=== PATIENT | male | born 1975 | race Caucasian/White ===

== ENCOUNTER 2023-07-17 08:50 | Inpatient (IN) | payer MEDICAID, SELFPAY ==
[2023-07-17 09:03] VITALS: BP 133/84; PULSE 89; RESP 18; TEMP 37.1; O2SAT 96; BMI 25.8
[2023-07-17 09:07] VITALS: BP 133/84; PULSE 89; RESP 19; O2SAT 96
[2023-07-17 09:25] LABS: Basophils # 0.1 10^3/uL (0.0-0.1); Basophils % 0.8 %; Eosinophils # 0.3 10^3/uL (0.0-0.8); Eosinophils % 3.5 %; Lymphocytes # 2.2 10^3/uL (0.8-4.8); Lymphocytes % 29.9 %; Mean Corpuscular HGB Conc 32.3 g/dL (30-55); Mean Corpuscular Volume 89.8 fl (82-101); Mean Platelet Volume 9.2 fL (7.4-10.4); Monocytes # 0.7 10^3/uL (0.2-0.9); Monocytes % 9.6 %; Neutrophils # 4.01 10^3/uL (1.8-7.7); Neutrophils % 55.6 %; Nucleated Red Blood Cells % 0 %; Platelet Count 224 10^3/cmm (157-399); Red Blood Count 4.79 10^6/uL (3.85-5.65); Red Cell Distribution Width 13.2 % (12.1-15.1)
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
[2023-07-17 09:41] LABS: Alanine Aminotransferase 103 U/L (0-41); Albumin Level 4.3 g/dL (3.5-5.2); Alkaline Phosphatase 91 U/L (40-130); Aspartate Amino Transferase 54 U/L (0-40); Blood Urea Nitrogen 16 mg/dL (6-20); Calcium 9.4 mg/dL (8.5-10.5); Carbon Dioxide 28 mmol/L (22-29); Chloride 104 mmol/L (98-107); Glomerular Filtration Rate 104.5 mL/min (90-130); Glucose 144 mg/dL (65-115); Osmolality Calculated 296 mOsm/kg (285-295); Salicylate 0.6 mg/dL (3-10); Sodium 141 mmol/L (136-145); Total Bilirubin 0.2 mg/dL (0.15-1.2); Total Protein 7.3 g/dL (6.6-8.7)
--- NOTE | 2023-07-17 09:42 | PC.PHAR ---
PT STATES SHOULD BE ON METFORMIN 500 MG TWICE DAILY. ALSO, STATES WAS TAKING BUSPAR (NOT SURE WHAT STRENGTH) BUT TOO CONFUSED ABOUT ANY OTHER MEDS BUT METFORMIN. 07/17/23
[2023-07-17 09:45] LABS: Acetaminophen < 5.0 ug/mL (10-30)
--- NOTE | 2023-07-17 10:13 | PC.NURSE ---
Brought patient a sandwich, some pudding and milk. Patient also stated to me at this time that his mind is racing and that he is having really bad anxiety and that he needs something to help with his anxiety. Patient also states that he is thinking about using the blanket he has and tying it to the TV hanging on the wall and attempting to hang himself. I explained to him that I would rather he not do that and he said how are you going to stop me? . I explained to the patient that I would see about getting him something for his anxiety and that we would not let him hurt himself.
--- NOTE | 2023-07-17 10:37 | PC.NURSE ---
NURSE NOTIFIED THAT PATIENT WAS ATTEMPTING TO WRAP BLANKET AROUND NECK. NURSE WALKED INTO ROOM AND PATIENT WAS TYPING A BLANKET TOGETHER. PATIENT BLANKET, SHEETS, AND CURTAINS REMOVED FROM ROOM. PROVIDER NOTIFIED.
[2023-07-17] MEDS: OLANZapine 10 mg ODT PO (10:46)
[2023-07-17] MEDS: LORazepam 2 mg Tablet PO (10:46)
[2023-07-17 11:08] LABS: Amphetamines Screen Urine Negative (Negative); Barbiturates Screen Urine Negative (Negative); Benzodiazepines Screen Urine Negative (Negative); Cocaine Screen Urine Negative (Negative); Opiate Screen Urine Negative (Negative); PCP Screen Urine Negative (Negative); THC Screen Urine Positive (Negative)
--- NOTE | 2023-07-17 12:25 | PC.NURSE ---
96 hr patient rights reviewed with patient with assistance of MEGHA Bautista @1200. Education provided, no questions, concerns or needs verbalized at this time. Patient copy left with patient @bedside.
[2023-07-17 15:54] VITALS: BP 100/61; PULSE 53; RESP 16; O2SAT 97
[2023-07-17 16:14] VITALS: BP 124/82; PULSE 85; RESP 16; O2SAT 100
[2023-07-17 20:29] VITALS: BP 106/60; PULSE 58; RESP 16; O2SAT 98
[2023-07-17 22:12] LABS: Glucose Point of Care 98 mg/dL (70-110)
[2023-07-18 06:00] VITALS: RESP 16
[2023-07-18 08:08] LABS: Glucose Point of Care 84 mg/dL (70-110)
[2023-07-18] MEDS: metformin 500 mg Tablet PO ×2 (09:02→17:57)
[2023-07-18] MEDS: OLANZapine 5 mg ODT PO ×2 (09:05→17:57)
--- NOTE | 2023-07-18 10:08 | PC.NURSE ---
Denies avh and hi. He does endorse si and states, I still want to kill myself. He denies having a plan. Patient would not go into details as to what pushed him to want to harm himself, but did say he and his girlfriend were having problems. He currently has a 1:[address] as he attempted to wrap a blanket around his neck in a suicide attempt last night in the ER.
[2023-07-18 12:25] LABS: Glucose Point of Care 99 mg/dL (70-110)
[2023-07-18 14:00] VITALS: BP 100/59; PULSE 62; RESP 13; TEMP 36.4; O2SAT 97
[2023-07-18 17:55] LABS: Glucose Point of Care 103 mg/dL (70-110)
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
[2023-07-18] MEDS: nicotine 2 mg Gum BUCCAL (19:40)
--- NOTE | 2023-07-18 20:07 | PC.NURSE ---
PT CONTINUES TO ENDORSE SI WITH PLAN TO HANG SELF WITH SHEET FROM THE CEILING TILES. ONE ON ONE SITTER AT BEDSIDE FOR PT SAFETY. PT DENIES HI AND AVH AT THIS TIME. RATES ANXIETY 10/10 AND DEPRESSION 5/10. PT REQUEST TRAZODONE TO SLEEP AND ANXIETY MEDICINE AT BEDTIME. PT IS GUARDED AND PARANOID OF CAMERAS. ALL QUESTIONS ANSWERED AND SUPPORT VOICED.
[2023-07-18] MEDS: lurasidone 20 mg Tablet PO (20:09)
[2023-07-18] MEDS: hyDROXYzine 25 mg Capsule 50 MG PO (20:09)
[2023-07-18] MEDS: trazodone 50 mg Tablet PO (20:10)
[2023-07-18 20:29] VITALS: BP 111/71; PULSE 76; RESP 18; O2SAT 96
[2023-07-18 21:41] LABS: Glucose Point of Care 115 mg/dL (70-110)
--- NOTE | 2023-07-18 23:55 | PC.NURSE ---
TRAZODONE 50 MG GIVEN FOR INSOMNIA AND VISTARIL 50 MG WAS GIVEN FOR ANXIETY. PT HAS BEEN RESTING WITH EYES CLOSED SINCE APPROXIMATELY 2144, MEDICATIONS EFFECTIVE.
[2023-07-19 05:56] VITALS: RESP 16
[2023-07-19 08:09] LABS: Glucose Point of Care 88 mg/dL (70-110)
[2023-07-19] MEDS: metformin 500 mg Tablet PO ×2 (10:54→18:00)
[2023-07-19] MEDS: nicotine 21 mg Patch 1 PATCH TRANSDERMA (12:18)
[2023-07-19] MEDS: LORazepam 1 mg Tablet PO ×3 (12:18→20:16)
[2023-07-19 12:31] LABS: Glucose Point of Care 95 mg/dL (70-110)
[2023-07-19 14:00] VITALS: BP 125/55; PULSE 87; RESP 14; TEMP 36.9; O2SAT 96
[2023-07-19] MEDS: hyDROXYzine 25 mg Capsule 50 MG PO ×2 (15:01→20:20)
[2023-07-19 17:54] LABS: Glucose Point of Care 100 mg/dL (70-110)
[2023-07-19] MEDS: lurasidone 80 mg Tablet 40 MG PO (18:03)
--- NOTE | 2023-07-19 19:00 | P.NPUPN_ITS ---
Subjective NPU 2 Subjective: 47-year-old male with a history of depression and suicidal ideation with a history of bipolar 2 disorder. The patient reported no side effects from his Latuda for bipolar depression. He continued to be on one-to-one and is continued to state that he was feeling lethargic and without energy. He had reported that he continued to have thoughts of hanging himself. The patient reported that he had been feeling depressed for several years. He had continued to report the rigors and difficulties of being homeless for 7 to 10 years. He continued to be somewhat frustrated and stated that he remained unsure as to where he was going to go but was contemplating either staying misery or returning to [place] where he had some family and friends. He had reported low energy and reported problems with frequent distractibility. He had endorsed a past history of use of Ritalin for treatment of ADHD in the past that he states has been very successful with helping him stay on task. Mental Status Exam 2 MSE Comments: He is a casually dressed white male with poor hygiene and normal gait with no evidence of any abnormal involuntary motor movements tics or tremors appreciated. His speech was normal in regards to rate, rhythm, and prosody. His mood remained depressed. His affect was restricted in range and mood congruent. He continued to endorse active suicidal ideation with intent to hang self. He denied any homicidal ideation. His thought process was linear, logical. He did not appear to be responding to internal stimuli. There was no clear evidence of delusional thinking. His attention span appeared poor as he was easily distracted. His insight is poor. His judgment is poor. His impulse control appeared limited. Vitals/I&O/Wt Last Vital Signs Temp 98.5 F 07/19/23 14:00 Pulse 87 07/19/23 14:00 Resp 14 07/19/23 14:00 BP 125/55 07/19/23 14:00 Pulse Ox 96 07/19/23 14:00 O2 Del Method Room Air 07/17/23 20:29 Data NPU 07/17/23 09:12 07/17/23 09:12 A&P Assessment and plan (1) Major depressive episode: (2) Suicidal ideation: (3) Bipolar 2 disorder: (4) Attention-deficit hyperactivity disorder, unspecified type: Plan 47-year-old male with a history of bipolar 2 disorder currently depressed with a history of PTSD as well currently actively suicidal. Will continue to require acute inpatient hospitalization. 1. Encourage individual, group and milieu therapy. 2. Recommend sober living treatment at the highest level of care to which the patient is willing to commit. 3. Continue 1-1 observation at this time due to active suicide attempt here in hospital. 4.? Restart Metformin as previously prescribed. 5.? Agreeable to treatment for bipolar depression.-Continue Latuda 20mg at 7PM, add Ritalin 10mg bid target adhd, executive dysfunction. Involuntary Hold Information 2 96 Hour Hold: 96 Hour Involuntary Admission: Yes 96 Hour Hold Ending Date: 07/24/23 96 Hour Hold Ending Time: 11:41 Attestations NPU 2 Medical Necessity Statement*: Inpatient hospitalization is medically necessary and deemed to be the clinically appropriate decision at this time. Medications will be initiated and titrated upwards as clinically deemed appropriate. The patient's likely length of stay is 5 to 7 days. Coding Level of Care Code Acute Code for [facility] Fwd Diagnoses Major depressive episode F32.9 Suicidal ideation R45.851 Bipolar 2 disorder F31.81 Attention-deficit hyperactivity disorder, unspecified type F90.9
[2023-07-19] MEDS: OLANZapine 5 mg ODT PO (19:53)
[2023-07-19] MEDS: trazodone 50 mg Tablet PO (20:20)
[2023-07-19 21:00] VITALS: BP 123/76; PULSE 97; RESP 18; TEMP 37.3; O2SAT 97
--- NOTE | 2023-07-19 21:34 | PC.NURSE ---
Patient Behavior At approximately 1920 the sitter was mike for help. When this nurse entered the room the patient had a sheet around his neck, was sitting on the ground and had the other end of the sheet closed in the bathroom door. Sheet was removed from neck. Dr. Enriquez was on the unit and notified. He ordered all linens to be removed from the patient room and to continue 1 to 1 observation. Later when patient was at nurses desk for medication he was laughing and jolly with the staff.
[2023-07-20 06:00] VITALS: RESP 16
[2023-07-20 08:07] LABS: Glucose Point of Care 122 mg/dL (70-110)
[2023-07-20] MEDS: hyDROXYzine 25 mg Capsule 50 MG PO (08:19)
[2023-07-20] MEDS: metformin 500 mg Tablet PO ×2 (08:19→17:04)
[2023-07-20] MEDS: methylphenidate 10 mg Tablet PO ×2 (08:19→11:34)
[2023-07-20] MEDS: nicotine 2 mg Gum BUCCAL ×2 (10:38→14:49)
[2023-07-20] MEDS: OLANZapine 5 mg ODT PO ×2 (10:43→16:04)
[2023-07-20 12:12] LABS: Glucose Point of Care 110 mg/dL (70-110)
--- NOTE | 2023-07-20 13:24 | P.NPUPN_ITS ---
Subjective NPU 2 Subjective: 47-year-old male with a history of depression and suicidal ideation with a history of bipolar 2 disorder and adhd. Patient had attempted to hang himself on the milieu again yesterday. He had reported that the Ritalin has been helpful in improving his activity. He had reported that he was extremely anxious after a conversation with his ex-girlfriend. He had remained somewhat ambivalent about where he would go when he is discharged. He had endorsed homelessness for nearly 7 years. He had repeatedly requested Ativan for helping with anxiety. He had continued to report feeling depressed and stated that he continued to have thoughts about hanging himself. Mental Status Exam 2 MSE Comments: He is a casually dressed white male with poor hygiene and normal gait with no evidence of any abnormal involuntary motor movements tics or tremors appreciated. His speech was normal in regards to rate, rhythm, and prosody. His mood remained depressed. His affect was restricted in range and mood congruent. He continued to endorse active suicidal ideation with intent to hang self. He denied any homicidal ideation. His thought process was linear, logical. He did not appear to be responding to internal stimuli. There was no clear evidence of delusional thinking. His attention span appeared poor as he was remained easily distracted. His insight is poor. His judgment is poor. His impulse control appeared limited. Vitals/I&O/Wt Last Vital Signs Temp 99.2 F 07/19/23 21:00 Pulse 97 07/19/23 21:00 Resp 16 07/20/23 06:00 BP 123/76 07/19/23 21:00 Pulse Ox 97 07/19/23 21:00 O2 Del Method Room Air 07/17/23 20:29 Data NPU 07/17/23 09:12 07/17/23 09:12 A&P Assessment and plan (1) Major depressive episode: (2) Suicidal ideation: (3) Bipolar 2 disorder: (4) Attention-deficit hyperactivity disorder, unspecified type: Plan 47-year-old male with a history of bipolar 2 disorder currently depressed with a history of PTSD as well currently actively suicidal. Will continue to require acute inpatient hospitalization. 1. Encourage individual, group and milieu therapy. 2. Recommend sober living treatment at the highest level of care to which the patient is willing to commit. 3. Continue 1-1 observation at this time due to active suicide attempt here in hospital. 4.? Continue Metformin as previously prescribed. 5.? Agreeable to treatment for bipolar depression.-increase Latuda 40mg at 7PM, continue Ritalin 10mg bid target adhd, executive dysfunction. Involuntary Hold Information 2 96 Hour Hold: 96 Hour Involuntary Admission: Yes 96 Hour Hold Ending Date: 07/24/23 96 Hour Hold Ending Time: 11:41 Attestations NPU 2 Medical Necessity Statement*: Inpatient hospitalization is medically necessary and deemed to be the clinically appropriate decision at this time. Medications will be initiated and titrated upwards as clinically deemed appropriate. The patient's likely length of stay is 5 to 7 days. Coding Level of Care Code Acute Code for g Fwd Diagnoses Major depressive episode F32.9 Suicidal ideation R45.851 Bipolar 2 disorder F31.81 Attention-deficit hyperactivity disorder, unspecified type F90.9
[2023-07-20 14:00] VITALS: BP 130/77; PULSE 102; RESP 17; TEMP 36.8; O2SAT 97
[2023-07-20] MEDS: lurasidone 80 mg Tablet 40 MG PO (17:05)
[2023-07-20 17:42] LABS: Glucose Point of Care 106 mg/dL (70-110)
[2023-07-20] MEDS: nicotine 4 mg lozenge MUCOUS MEM (18:08)
[2023-07-20 19:46] VITALS: BP 122/78; PULSE 97; RESP 17; TEMP 36.8; O2SAT 97
[2023-07-20] MEDS: trazodone 50 mg Tablet PO (20:01)
[2023-07-20 20:08] LABS: Glucose Point of Care 106 mg/dL (70-110)
[2023-07-21 06:00] VITALS: BP 102/64; PULSE 65; RESP 18; O2SAT 98
[2023-07-21 07:48] LABS: Glucose Point of Care 91 mg/dL (70-110)
[2023-07-21] MEDS: methylphenidate 10 mg Tablet PO ×2 (08:17→12:28)
[2023-07-21] MEDS: metformin 500 mg Tablet PO ×2 (08:17→17:02)
[2023-07-21] MEDS: OLANZapine 5 mg ODT PO ×2 (08:17→15:19)
[2023-07-21] MEDS: nicotine 4 mg lozenge MUCOUS MEM ×3 (08:39→15:29)
--- NOTE | 2023-07-21 09:19 | PC.NURSE ---
IN BED RESTING WITH SITTER AT BEDSIDE. PT CONTINUES TO ENDORSE SUICIDAL THOUGHTS WITH PLAN TO HANG HIMSELF. SITTER IN PLACE FOR SAFETY. PT DENIES HI AND AVH AT THIS TIME. RATES ANXIETY 10/10 AND DEPRESSION 0/10. PT REQUEST ANTI ANXIETY MEDICATION WITH AM MEDS. PT WAS GIVEN ZYDIS 5 MG ORDERED FOR ANXIETY. PT ISOLATES AND IS WITHDRAWN TO ROOM. PT ENCOURAGED TO SOCIALIZE WITH PEERS. ALL QUESTIONS ANSWERED AND SUPPORT WAS VOICED. DENIES PAIN.
[2023-07-21 11:39] LABS: Glucose Point of Care 102 mg/dL (70-110)
--- NOTE | 2023-07-21 13:20 | PC.NURSE ---
UP TO NURSES STATION THIS AM REQUESTING SOMETHING FOR ANXIETY. PT WAS GIVEN VISTARIL 50 MG ORDERED FOR ANXIETY.
[2023-07-21 14:00] VITALS: BP 136/73; PULSE 90; RESP 14; TEMP 36.9; O2SAT 98
[2023-07-21 17:31] LABS: Glucose Point of Care 108 mg/dL (70-110)
--- NOTE | 2023-07-21 17:45 | P.NPUPN_ITS ---
Subjective NPU 2 Subjective: 47-year-old male with a history of depression and suicidal ideation with a history of bipolar 2 disorder and adhd. Patient remained on one-to-one. He did not report having any thoughts of hanging himself although he continued to report feeling depressed. He reported some improved energy on his methylphenidate. He had reported that he was feeling better. He reported adequate sleep. He was cooperative and did not require any redirection. He had stated that he had had a long history of difficulty with managing depression with the occasional periods of hypomania. He continued to report that he was uncertain as to where he would go when he left here as he remained homeless. Mental Status Exam 2 MSE Comments: He is a casually dressed white male with poor hygiene and normal gait with no evidence of any abnormal involuntary motor movements tics or tremors appreciated. His speech was normal in regards to rate, rhythm, and prosody. His mood was endorsed as depressed but reported feeling better. His affect was less restricted today. He continued to endorse active suicidal ideation but did not report specific plan. He denied any homicidal ideation. His thought process was linear, logical. He did not appear to be responding to internal stimuli. There was no clear evidence of delusional thinking. His attention span appeared poor as he was remained easily distracted. His insight is poor. His judgment is poor. His impulse control appeared limited. Vitals/I&O/Wt Last Vital Signs Temp 98.5 F 07/21/23 14:00 Pulse 90 07/21/23 14:00 Resp 14 07/21/23 14:00 BP 136/73 07/21/23 14:00 Pulse Ox 98 07/21/23 14:00 O2 Del Method Room Air 07/21/23 06:00 Weight last 48 hrs Weight 81.703 kg Weight 81.703 kg Data NPU 07/17/23 09:12 07/17/23 09:12 A&P Assessment and plan (1) Major depressive episode: (2) Suicidal ideation: (3) Bipolar 2 disorder: (4) Attention-deficit hyperactivity disorder, unspecified type: Plan 47-year-old male with a history of bipolar 2 disorder currently depressed with a history of PTSD as well currently actively suicidal. Will continue to require acute inpatient hospitalization. 1. Encourage individual, group and milieu therapy. 2. Recommend sober living treatment at the highest level of care to which the patient is willing to commit. 3. Continue 1-1 observation at this time due to active suicide attempt here in hospital. 4.? Continue Metformin as previously prescribed. 5.? Agreeable to treatment for bipolar depression.-continue Latuda 40mg at 7PM, continue Ritalin 10mg bid target adhd, executive dysfunction. Involuntary Hold Information 2 96 Hour Hold: 96 Hour Involuntary Admission: Yes 96 Hour Hold Ending Date: 07/24/23 96 Hour Hold Ending Time: 11:41 Attestations NPU 2 Medical Necessity Statement*: Inpatient hospitalization is medically necessary and deemed to be the clinically appropriate decision at this time. Medications will be initiated and titrated upwards as clinically deemed appropriate. The patient's likely length of stay is 5 to 7 days. Coding Level of Care Code Acute Code for g Fwd Diagnoses Major depressive episode F32.9 Suicidal ideation R45.851 Bipolar 2 disorder F31.81 Attention-deficit hyperactivity disorder, unspecified type F90.9
[2023-07-21] MEDS: lurasidone 80 mg Tablet 40 MG PO (17:59)
[2023-07-21 19:25] VITALS: BP 117/63; PULSE 98; RESP 16; TEMP 37.2; O2SAT 98
[2023-07-21] MEDS: trazodone 50 mg Tablet PO (19:57)
[2023-07-21 19:58] LABS: Glucose Point of Care 109 mg/dL (70-110)
[2023-07-21] MEDS: LORazepam 1 mg Tablet PO (20:18)
[2023-07-22 06:00] VITALS: RESP 16
[2023-07-22] MEDS: methylphenidate 10 mg Tablet PO ×2 (07:35→12:09)
[2023-07-22] MEDS: metformin 500 mg Tablet PO ×2 (07:35→18:17)
[2023-07-22] MEDS: nicotine 4 mg lozenge MUCOUS MEM ×3 (07:35→19:43)
[2023-07-22 07:49] LABS: Glucose Point of Care 88 mg/dL (70-110)
[2023-07-22] MEDS: hyDROXYzine 25 mg Capsule 50 MG PO ×2 (08:33→15:27)
[2023-07-22 11:39] LABS: Glucose Point of Care 122 mg/dL (70-110)
[2023-07-22] MEDS: OLANZapine 5 mg ODT PO ×2 (13:14→20:08)
--- NOTE | 2023-07-22 13:15 | PC.NURSE ---
administered zyprexa 5mg ODT to patient. patient reports being anxious because he doesn't know what is going to happen next, where he is going and that it is cold outside.
[2023-07-22 13:35] VITALS: BP 144/81; PULSE 98; RESP 16; TEMP 36.7; O2SAT 100
--- NOTE | 2023-07-22 15:33 | P.NPUPN_ITS ---
Subjective NPU 2 Subjective: 47-year-old male with a history of depression and suicidal ideation with a history of bipolar 2 disorder and adhd. Patient remained on one-to-one as he had still said he was suicidal but reported improved energy and mood. He was more interactive on the milieu. He reported no side effects from the medication he reported no sleep continuity disruption. He continued to report having periods of sadness. Staff notes patient had been more social and was redirectable on the unit. Mental Status Exam 2 MSE Comments: He is a casually dressed white male with poor hygiene and normal gait with no evidence of any abnormal involuntary motor movements tics or tremors appreciated. His speech was normal in regards to rate, rhythm, and prosody. His mood was endorsed as better His affect was less restricted today. He continued to endorse active suicidal ideation and reported plan to hang self still. He denied any homicidal ideation. His thought process was linear, logical. He did not appear to be responding to internal stimuli. There was no clear evidence of delusional thinking. His attention span appeared poor as he was remained easily distracted. His insight is poor. His judgment is poor. His impulse control appeared limited. Vitals/I&O/Wt Last Vital Signs Temp 98.1 F 07/22/23 13:35 Pulse 98 07/22/23 13:35 Resp 16 07/22/23 13:35 BP 144/81 07/22/23 13:35 Pulse Ox 100 07/22/23 13:35 O2 Del Method Room Air 07/22/23 13:35 Weight last 48 hrs Weight 81.703 kg Weight 81.703 kg Data NPU 07/17/23 09:12 07/17/23 09:12 A&P Assessment and plan (1) Major depressive episode: (2) Suicidal ideation: (3) Bipolar 2 disorder: (4) Attention-deficit hyperactivity disorder, unspecified type: Plan 47-year-old male with a history of bipolar 2 disorder currently depressed with a history of PTSD as well currently actively suicidal. Will continue to require acute inpatient hospitalization. 1. Encourage individual, group and milieu therapy. 2. Recommend sober living treatment at the highest level of care to which the patient is willing to commit. 3. Continue 1-1 observation at this time due to active suicide attempt here in hospital. 4.? Continue Metformin as previously prescribed. 5.? Agreeable to treatment for bipolar depression.-continue Latuda 40mg at 7PM, continue Ritalin 10mg bid target adhd, executive dysfunction. Involuntary Hold Information 2 96 Hour Hold: 96 Hour Involuntary Admission: Yes 96 Hour Hold Ending Date: 07/24/23 96 Hour Hold Ending Time: 11:41 Attestations NPU 2 Medical Necessity Statement*: Inpatient hospitalization is medically necessary and deemed to be the clinically appropriate decision at this time. Medications will be initiated and titrated upwards as clinically deemed appropriate. The patient's likely length of stay is 5 to 7 days. Coding Level of Care Code Acute Code for Chg Fwd Diagnoses Major depressive episode F32.9 Suicidal ideation R45.851 Bipolar 2 disorder F31.81 Attention-deficit hyperactivity disorder, unspecified type F90.9
[2023-07-22 16:32] LABS: Glucose Point of Care 120 mg/dL (70-110)
[2023-07-22] MEDS: lurasidone 80 mg Tablet 40 MG PO (18:17)
[2023-07-22 19:33] VITALS: BP 135/74; PULSE 88; RESP 18; TEMP 36.9; O2SAT 98
[2023-07-22 19:45] LABS: Glucose Point of Care 121 mg/dL (70-110)
--- NOTE | 2023-07-22 19:54 | PC.NURSE ---
IN BED RESTING WITH SITTER AT BEDSIDE. CALM AND COOPERATIVE. DENIES SI/HI AND AVH AT THIS TIME. TONIGHT IS THE FIRST TIME PT HAS DENIED WANTING TO HARM HIMSELF BY HANGING. WHEN ASKED WHAT CHANGED PT STATED I JUST DON'T WANT TO DO THAT ANYMORE. RATES ANXIETY 5/10 AND DEPRESSION 0/10. DENIES PAIN. PT CONTINUES TO NOT BE ALLOWED TO HAVE SHEETS OR BLANKETS DUE TO PREVIOUS ATTEMPT TO HANG SELF BY SHEET. ALL QUESTIONS ANSWERED AND SUPPORT WAS VOICED.
[2023-07-22] MEDS: trazodone 50 mg Tablet PO (20:08)
--- NOTE | 2023-07-22 22:44 | PC.NURSE ---
PT UP TO NURSES STATION REQUESTING SOMETHING TO HELP ME SLEEP AND SOMETHING FOR ANXIETY. ZYDIS 5 MG WAS GIVEN FOR ANXIETY AND TRAZODONE 50 MG WAS GIVEN FOR INSOMNIA. PT CONTINUES TO DENY SUICIDAL THOUGHTS. SUPPORT VOICED.
[2023-07-23 06:00] VITALS: RESP 18
[2023-07-23 08:06] LABS: Glucose Point of Care 81 mg/dL (70-110)
[2023-07-23] MEDS: methylphenidate 10 mg Tablet PO ×2 (08:17→11:49)
[2023-07-23] MEDS: metformin 500 mg Tablet PO ×2 (08:17→17:56)
[2023-07-23] MEDS: nicotine 4 mg lozenge MUCOUS MEM ×2 (08:23→12:42)
[2023-07-23] MEDS: OLANZapine 5 mg ODT PO (10:36)
[2023-07-23] MEDS: hyDROXYzine 25 mg Capsule 50 MG PO (11:49)
[2023-07-23 12:18] LABS: Glucose Point of Care 93 mg/dL (70-110)
[2023-07-23 12:25] LABS: Glucose Point of Care 142 mg/dL (70-110)
[2023-07-23 14:00] VITALS: BP 114/74; PULSE 104; RESP 20; TEMP 36.6; O2SAT 97
--- NOTE | 2023-07-23 14:25 | P.NPUPN_ITS ---
Subjective NPU 2 Subjective: Patient presented today reporting that he is doing much better and is denying any suicidality. We discussed working with the social work team on discharge planning and he was very open to this idea. We discussed taking him off of one-to-one and he assured this proposal manager writer that he would be safe on the unit. He reported that he is having no side effects to medications. Mental Status Exam 2 MSE Comments: He is a casually dressed white male with poor hygiene and normal gait with no evidence of any abnormal involuntary motor movements tics or tremors appreciated. His speech was normal in regards to rate, rhythm, and prosody. His mood was endorsed as better His affect was less restricted today. He denied suicidal or homicidal ideation. There were no delusions reported or noted, he denied auditory or visual hallucinations. His thought process was linear, logical. Attention and concentration appeared intact and memory appeared mostly reliable but none were formally tested. He is alert and oriented x 3. Insight and judgment are limited his impulse control appeared limited, but improved. Vitals/I&O/Wt Last Vital Signs Temp 98.5 F 07/22/23 19:33 Pulse 88 07/22/23 19:33 Resp 18 07/23/23 06:00 BP 135/74 07/22/23 19:33 Pulse Ox 98 07/22/23 19:33 O2 Del Method Room Air 07/22/23 19:33 Data NPU 07/17/23 09:12 07/17/23 09:12 A&P Assessment and plan (1) Major depressive episode: (2) Suicidal ideation: (3) Bipolar 2 disorder: (4) Attention-deficit hyperactivity disorder, unspecified type: Plan 47-year-old male with a history of bipolar 2 disorder currently depressed with a history of PTSD as well currently actively suicidal. Will continue to require acute inpatient hospitalization. 1. Encourage individual, group and milieu therapy. 2. Recommend sober living treatment at the highest level of care to which the patient is willing to commit. 3. Start every 15 minute checks for safety. 4.? Continue Metformin as previously prescribed. 5.? Agreeable to treatment for bipolar depression.-continue Latuda 40mg at 7PM, continue Ritalin 10mg bid target adhd, executive dysfunction. Involuntary Hold Information 2 96 Hour Hold: 96 Hour Involuntary Admission: Yes 96 Hour Hold Ending Date: 07/24/23 96 Hour Hold Ending Time: 11:41 Attestations NPU 2 Medical Necessity Statement*: Inpatient hospitalization is medically necessary and deemed to be the clinically appropriate decision at this time. Medications will be initiated and titrated upwards as clinically deemed appropriate. The patient's likely length of stay is 1-3 days. Coding Level of Care Code Acute Code for Chg Fwd Diagnoses Major depressive episode F32.9 Suicidal ideation R45.851 Bipolar 2 disorder F31.81 Attention-deficit hyperactivity disorder, unspecified type F90.9
[2023-07-23 17:42] LABS: Glucose Point of Care 107 mg/dL (70-110)
[2023-07-23] MEDS: lurasidone 80 mg Tablet 40 MG PO (17:57)
[2023-07-23] MEDS: nicotine 2 mg Gum BUCCAL (18:41)
[2023-07-23 19:59] VITALS: BP 128/79; PULSE 92; RESP 18; O2SAT 97
[2023-07-23 20:03] LABS: Glucose Point of Care 109 mg/dL (70-110)
[2023-07-23] MEDS: trazodone 50 mg Tablet PO (20:53)
[2023-07-24 06:00] VITALS: RESP 16
[2023-07-24 08:16] LABS: Glucose Point of Care 95 mg/dL (70-110)
[2023-07-24] MEDS: nicotine 4 mg lozenge MUCOUS MEM ×4 (08:26→20:14)
[2023-07-24] MEDS: metformin 500 mg Tablet PO ×2 (08:26→18:21)
[2023-07-24] MEDS: methylphenidate 10 mg Tablet PO ×2 (08:26→11:51)
[2023-07-24] MEDS: hyDROXYzine 25 mg Capsule 50 MG PO (08:26)
--- NOTE | 2023-07-24 08:49 | PC.NURSE ---
IN BED RESTING AROUSES TO VOICE. DENIES PAIN, SI/HI AND AVH AT THIS TIME. RATES ANXIETY 2/10 AND DEPRESSION 0/10. PT CONTINUES TO BE OFF HIS ONE ON ONE AND STATES HE IS NO LONGER IS HAVING SUICIDAL THOUGHTS. COMPLIANT WITH MEDICATIONS. ALL QUESTIONS ANSWERED AND SUPPORT VOICED.
--- NOTE | 2023-07-24 11:11 | PC.NURSE ---
NEW ORDERS RECEIVED TO DISCONTINUE ACCU CHECKS AC/HS AND CHANGED TO ACCU CHECKS BID AND PRN. PT VOICED DISCOMFORT HAVING HIS GLUCOSE CHECKED SO MUCH. PT REPORTS I DON'T REALLY CHECK IT. PT EDUCATED ON NEW ORDERS AND IS PLEASED. ALL QUESTIONS ANSWERED AND SUPPORT VOICED.
[2023-07-24 14:00] VITALS: BP 123/79; PULSE 102; RESP 20; TEMP 37.3; O2SAT 95
[2023-07-24] MEDS: haloperidol 5 mg Tablet PO (16:02)
--- NOTE | 2023-07-24 17:48 | P.NPUPN_ITS ---
Subjective NPU 2 Subjective: Patient presented today reporting that he is accepting of the fact that the hospital is not going to get him a bus ticket back to [place]. He reported an openness to going to a longterm with a plan to connect with supports at home and try to get back home in the next 20 days to get to a hearing that he has that he does not want to miss. He reports that he is doing fine with his medication and reports no side effects. We discussed the likelihood of discharge tomorrow. Mental Status Exam 2 MSE Comments: He is a casually dressed white male with poor hygiene and normal gait with no evidence of any abnormal involuntary motor movements tics or tremors appreciated. His speech was normal in regards to rate, rhythm, and prosody. His mood was endorsed as better. His affect was more congruent. He denied suicidal or homicidal ideation. There were no delusions reported or noted, he denied auditory or visual hallucinations. His thought process was linear, logical. Attention and concentration appeared intact and memory appeared mostly reliable but none were formally tested. He is alert and oriented x 3. Insight and judgment are limited his impulse control appeared limited, but improved. Vitals/I&O/Wt Last Vital Signs Temp 99.1 F 07/24/23 14:00 Pulse 102 H 07/24/23 14:00 Resp 20 H 07/24/23 14:00 BP 123/79 07/24/23 14:00 Pulse Ox 95 07/24/23 14:00 O2 Del Method Room Air 07/23/23 19:59 Data NPU 07/17/23 09:12 07/17/23 09:12 A&P Assessment and plan (1) Major depressive episode: (2) Suicidal ideation: (3) Bipolar 2 disorder: (4) Attention-deficit hyperactivity disorder, unspecified type: Plan 47-year-old male with a history of bipolar 2 disorder currently depressed with a history of PTSD as well currently actively suicidal. Will continue to require acute inpatient hospitalization. 1. Encourage individual, group and milieu therapy. 2. Recommend sober living treatment at the highest level of care to which the patient is willing to commit. Likely discharge tomorrow likely to longterm but he reports a goal of getting back to [place] in time for his hearing on 08/13/2023. 3. Start every 15 minute checks for safety. 4.? Continue Metformin as previously prescribed. 5.? Agreeable to treatment for bipolar depression.-continue Latuda 40mg at 7PM, continue Ritalin 10mg bid target adhd, executive dysfunction. Involuntary Hold Information 2 96 Hour Hold: 96 Hour Involuntary Admission: Yes 96 Hour Hold Ending Date: 07/24/23 96 Hour Hold Ending Time: 11:41 Attestations NPU 2 Medical Necessity Statement*: Inpatient hospitalization is medically necessary and deemed to be the clinically appropriate decision at this time. Medications will be initiated and titrated upwards as clinically deemed appropriate. The patient's likely length of stay is 1-2 days. Coding Level of Care Code Acute Code for Chg Fwd Diagnoses Major depressive episode F32.9 Suicidal ideation R45.851 Bipolar 2 disorder F31.81 Attention-deficit hyperactivity disorder, unspecified type F90.9
[2023-07-24 18:02] LABS: Glucose Point of Care 125 mg/dL (70-110)
[2023-07-24] MEDS: lurasidone 80 mg Tablet 40 MG PO (18:22)
[2023-07-24] MEDS: trazodone 50 mg Tablet PO (20:14)
[2023-07-24 20:26] VITALS: BP 128/87; PULSE 92; RESP 18; TEMP 36.5; O2SAT 96
[2023-07-25 08:13] LABS: Glucose Point of Care 95 mg/dL (70-110)
[2023-07-25] MEDS: methylphenidate 10 mg Tablet PO (09:22)
[2023-07-25] MEDS: metformin 500 mg Tablet PO (09:22)
[2023-07-25] MEDS: nicotine 4 mg lozenge MUCOUS MEM (09:22)
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
[2023-07-25 10:06] VITALS: BP 128/87; PULSE 92; RESP 18; TEMP 36.5; O2SAT 96
[2023-07-25] MEDS: OLANZapine 5 mg ODT PO (10:07)
== END 2023-07-25 11:09 | disposition home or self-care (01) | DRG 885 ==
LOC: ER 13:29 → NP 15:45
PROVIDERS: Admitting Provider Psychiatry & Neurology Psychiatry; Emergency Provider Family Medicine; Visit Provider Psychiatry & Neurology Psychiatry
DX: F31.81 Bipolar II disorder (principal); R45.851 Suicidal ideations; Z59.01 Sheltered homelessness; F43.10 Post-traumatic stress disorder, unspecified; E11.9 Type 2 diabetes mellitus without complications; Z79.84 Long term (current) use of oral hypoglycemic drugs; F90.9 Attention-deficit hyperactivity disorder, unspecified type; Z81.8 Family history of other mental and behavioral disorders
CPT/HCPCS: 36415; 36416; 80053; 80306; 80307; 82962; 85025; 97150; 97165; 99285